=== PATIENT | male | born 1985 | race Hispanic/Latino ===

== ENCOUNTER 2017-09-29 17:43 | Emergency (ER) | payer SELFPAY ==
--- NOTE | 2017-09-29 18:28 | EKG12_ITS ---
Test Reason : CP Blood Pressure : / mmHG Vent. Rate : 065 BPM Atrial Rate : 065 BPM P-R Int : 150 ms QRS Dur : 084 ms QT Int : 390 ms P-R-T Axes : 034 053 037 degrees QTc Int : 405 ms Normal sinus rhythm Normal ECG Confirmed by JOSEPH WHATLEY, HERMES ([id number]), video news editor DANIS DIAZ ([id number]) on 10/03/2017 2:59:01 PM Referred By: APRIL Confirmed By:HERMES RUIZ MD
--- NOTE | 2017-09-29 19:15 | RAD_ITS ---
STUDY: X-RAY CHEST REASON FOR EXAM: Male, 32 years old. Right chest pain TECHNIQUE: PA and lateral COMPARISON: None. FINDINGS: Right perihilar interstitial infiltrate slightly more pronounced in the lower and middle lobes. There is no demonstrated pleural abnormality. Normal size heart. Normal mediastinum and stefano. Normal visualized pulmonary arteries. Normal visualized aortic arch and descending thoracic aorta. Normal visualized thoracic spine. Normal visualized ribs, clavicles, and shoulders. There is no demonstrated abnormality of the visualized soft tissue structures of the upper abdomen. RAD/Chest PA and Lateral IMPRESSION: Right-sided interstitial infiltrate which may be consistent with viral pneumonia. Clinical correlation recommended Electronically Signed: Jens Bledsoe MD at 20:10 EDT , Service support ,
--- NOTE | 2017-09-30 01:09 | ED.DCSUM_ITS ---
- ER Visit Summary Date of Service: 09/30/17 Chief Complaint: Chest pain History of Present Illness: The patient is a 32 M who states for the past several days he has had a runny nose and a cough. 2 days ago he began to have pain on the right anterior chest wall. He states whenever he coughs it is extremely painful. Whenever he touches this area or twist or moves it hurts. Denies any fevers. He denies any sputum production. No dyspnea on exertion. He is a smoker. He denies any trauma. No reported rashes. Physical Examination: Afebrile vital signs are stable Gen: Well-nourished well-developed Head: Normocephalic atraumatic Eyes: Perrl EOMI ENT: TMs clear no rhinorrhea moist mucous membranes Neck: Supple no lymphadenopathy no JVD nontender CVS: Regular rate rhythm no murmurs normal S1-S2 Respiratory: No distress clear to auscultation bilaterally right anterior lower chest wall is tender to palpation. This exactly reproduces his pain. When the patient coughs he splints on the side. Abdomen: Soft nontender nondistended normal bowel sounds no masses Back: Nontender Extremity: Nontender no edema Skin: Normal color no rash Neuro: alert orientated ?3 CN II-XII intact normal strength sensation reflexes gait cerebellar Psych: Normal affect normal mood Test Results: Chest x-ray read by radiology shows a right-sided interstitial infiltrate which may be consistent with a viral pneumonia. I believe the patient's symptoms are viral in nature. But I believe his chest pain is related to his chest wall. He will be treated conservatively with ibuprofen. Return if worsening. Impression: 1. Viral respiratory illness 2. Chest wall pain This note was generated with [employer] dictation software. It may contain incorrect words, spelling, and punctuation that were not noted in review of the chart prior to signing ED Disposition - Plan for ED Patient: Referrals: Care Physician,No Primary [Primary Care Provider] -
== END 2017-09-29 20:35 | disposition home or self-care (01) ==
LOC: ED 20:34
PROVIDERS: Emergency Provider Emergency Medicine
DX: J06.9 Acute upper respiratory infection, unspecified (principal); R07.89 Other chest pain; Z72.0 Tobacco use
CPT/HCPCS: 71046; 93005; 96372; 99282

== ENCOUNTER 2017-10-03 09:34 | Emergency (ER) | payer SELFPAY ==
[2017-10-03 09:35] VITALS: BP 145/81; PULSE 74; RESP 16; TEMP 36.4; O2SAT 97; BMI 32.2
--- NOTE | 2017-10-03 10:02 | ED.VISSUMM ---
- ER Visit Summary Date of Service: 10/03/17 Chief Complaint: Right chest wall pain History of Present Illness: The patient is a 32 M presenting with right-sided chest wall pain. Patient was seen in the ED on Monday for similar complaints. He states Motrin is not helping his symptoms. He states before this started he had been coughing frequently. He denies any other injury. He has pain with deep inspiration. Denies other complaints. Physical Examination: Vitals are stable. Patient is afebrile. Alert no acute distress. HEENT exam is unremarkable. Neck is supple. Lungs are clear and equal bilaterally. Right anterior chest wall tenderness with no crepitus Heart is regular rate and rhythm. Abdomen is soft nontender nondistended. No guarding or rebound Extremities are unremarkable. Skin is warm and dry. No rash. No focal neurologic deficit. Remainder of exam is unremarkable. Emergency Department Course and Treatment: Patient is given Toradol. Right rib series shows no acute process. D-dimer is 0.68. CTA chest shows no evidence of PE or dissection. Patient is given an incentive spirometer. He is given a short course of [place]. Advised to continue Motrin. He is given Dr. Torre developmental education instructor for no doc for follow-up. Advised return to ED for worsening complaints. Disposition: Discharge home Impression: Right chest wall pain This note was generated with [employer] dictation software. It may contain incorrect words, spelling, and punctuation that were not noted in review of the chart prior to signing ED Disposition - Plan for ED Patient: Chief Complaint: Chest Other Referrals: Care Physician,No Primary [Primary Care Provider] -
[2017-10-03] MEDS: Ketorolac 30 MG/ML Syringe IV (10:03)
--- NOTE | 2017-10-03 10:20 | RAD_ITS ---
STUDY: X-RAY - UNILATERAL RIBS ( RIGHT ) WITH CHEST REASON FOR EXAM: Male, 32 years old. Right anterior mid-level chest and rib pain. TECHNIQUE - RIBS: 4 view(s) of the ribs. TECHNIQUE - CHEST: Single frontal projection of the chest. COMPARISON: Chest exam September 29, 2017. FINDINGS - RIBS: Normal visualized ribs without a demonstrated fracture. FINDINGS - CHEST: There is chronic atelectasis versus fibrosis within the right medial lung base. There is no pleural effusion. There is no pneumothorax. Normal size heart. Normal mediastinum and stefano. Normal visualized pulmonary arteries. Normal visualized aortic arch and descending thoracic aorta. Normal visualized thoracic spine. Normal visualized ribs, clavicles, and shoulders. There is no demonstrated abnormality of the visualized soft tissue structures of the upper abdomen. RAD/Ribs Uni Min 3V w/PA Chest IMPRESSION: RIBS: No acute osseous abnormality. CHEST: Right medial lung base chronic atelectasis versus fibrosis. Overall, no evident acute cardiopulmonary disease. Electronically Signed: Ronnell Gonzales MD at 10:56 EDT , Service support ,
[2017-10-03 11:29] LABS: D-Dimer Quantitative (DVT/PE) 0.68 FEU/ug/m (0.27-0.49)
--- NOTE | 2017-10-03 11:31 | CT_ITS ---
STUDY: CTA CHEST REASON FOR EXAM: Male, 32 years old. Elevated d-dimer and chest pain. RADIATION DOSAGE (If Supplied By Facility): CTDIvol = ( 17.49 ) mGy, DLP = ( 522.31 ) mGycm TECHNIQUE: The examination was performed with the intravenous administration of 100ML ml of Isovue 370 contrast material. Post-processing of the angiographic images was performed, with multiplanar reformation and 3D reconstruction. Individualized dose optimization techniques were used for this CT. COMPARISON: None. FINDINGS: Normal enhancement of the main pulmonary artery and right and left pulmonary arteries. Normal enhancement of the bilateral peripheral pulmonary arteries. There is no demonstrated pulmonary embolism. Normal thoracic aorta and visualized great vessels. There is no demonstrated aortic dissection. Normal heart and pericardium. Normal mediastinum. Normal hilar regions. Normal visualized trachea and bronchi. There is multifocal subsegmental atelectasis throughout the lungs, predominantly involving bilateral lower lobes. There is no pleural effusion. There is no pneumothorax. Normal chest wall structures. Normal osseous structures. Normal visualized upper abdomen. CT/CTA Chest W/WO Contrast IMPRESSION: No demonstrated pulmonary embolism or arterial dissection. Multifocal subsegmental atelectasis bilaterally, predominantly involving lower lobes. Electronically Signed: Ronnell Gonzales MD at 12:40 EDT , Service support ,
[2017-10-03 12:05] LABS: Anion Gap 7 (5-15); BUN 10 mg/dL (7-18); BUN/Creat Ratio 10.6 RATIO (10-20); Chloride 104 mmol/L (98-107); Creatinine, Serum 0.94 mg/dL (0.70-1.30); EST Glomerular Filtration Rate 99 mL/min (>60); Est Glom Filt Rate - Afr Amer 120 mL/min (>60); Estimated Creatinine Clearance 99.05 ml/min; Glucose 118 mg/dL (74-106); Potassium 3.7 mmol/L (3.5-5.1); Sodium Level 136 mmol/L (136-145)
--- NOTE | 2017-10-03 13:02 | ED.DEP ---
ED Disposition - Plan for ED Patient: Chief Complaint: Chest Other Instructions: ED Strain Chest Wall Prescriptions: Hydrocodone Bitart/Apap 5-325 [[place] 5/325] 1 - 2 tablet PO Q6H PRN PRN 2 Days #8 tablet PRN Reason: Pain Referrals: Care Physician,No Primary [Primary Care Provider] - Marcus Torre MD [STAFF PHYSICIAN] -
--- NOTE | 2017-10-03 13:03 | EKG12_ITS ---
Test Reason : CHEST/OTHER Blood Pressure : / mmHG Vent. Rate : 065 BPM Atrial Rate : 065 BPM P-R Int : 158 ms QRS Dur : 088 ms QT Int : 404 ms P-R-T Axes : 021 040 025 degrees QTc Int : 420 ms Normal sinus rhythm Normal ECG Confirmed by TREVOR WHATLEY, TAMMI ([id number]), video editor DANIS DIAZ ([id number]) on 10/06/2017 12:55:06 PM Referred By: LINWOOD Confirmed By:TAMMI MURRAY MD
--- NOTE | 2017-10-03 13:03 | DCINST.ED_ITS ---
ED Disposition - Plan for ED Patient: Chief Complaint: Chest Other Instructions: ED Strain Chest Wall Prescriptions: Hydrocodone Bitart/Apap 5-325 [[place] 5/325] 1 - 2 tablet PO Q6H PRN PRN 2 Days # 8 tablet PRN Reason: Pain Referrals: Care Physician,No Primary [Primary Care Provider] - Marcus Torre MD [STAFF PHYSICIAN] -
[2017-10-03 13:46] VITALS: BP 120/73; PULSE 61; RESP 14; O2SAT 97
== END 2017-10-03 13:46 | disposition home or self-care (01) ==
LOC: ED 09:59
PROVIDERS: Emergency Provider Emergency Medicine
DX: R07.89 Other chest pain (principal); R05 Cough; R06.00 Dyspnea, unspecified; Z72.0 Tobacco use
CPT/HCPCS: 36415; 71101; 71275; 80048; 85379; 93005; 96374; 99285; Q9967

== ENCOUNTER 2017-10-16 16:41 | Emergency (ER) | payer SELFPAY ==
[2017-10-16 16:42] VITALS: BP 114/70; PULSE 89; RESP 17; TEMP 36.7; O2SAT 96; BMI 30.9
--- NOTE | 2017-10-16 16:53 | ED.RN ---
PT WAS EATING SNACKS IN TRIAGE, WHEN THIS RN WAS TRYING TO CHECK IN PT. PT EDUCATED NOT TO EAT UNTIL AFTER HE IS EVALUATED BY AND IS CLEARED TO EAT.
--- NOTE | 2017-10-16 16:56 | RAD_ITS ---
STUDY: X-RAY - LUMBAR SPINE REASON FOR EXAM: Male, 32 years old. Low back pain. TECHNIQUE: 3 view(s) of the lumbar spine were obtained. COMPARISON: None FINDINGS: Normal lumbar lordosis. There is no substantial scoliosis. There is a normal alignment of the vertebrae. Normal vertebral bodies and endplates. Normal disc space heights. There is no demonstrated fracture. The soft tissue structures are unremarkable. RAD/Lumbar Spine 2 or 3 Views IMPRESSION: Normal x-ray examination of the lumbar spine. Electronically Signed: Tyrese Aldridge MD at 19:56 EDT , Service support ,
--- NOTE | 2017-10-16 17:05 | RAD_ITS ---
STUDY: X-RAY CHEST REASON FOR EXAM: Male, 32 years old. Rib pain. TECHNIQUE: Frontal and lateral views of the chest. COMPARISON: 10/03/2017. FINDINGS: The lungs are clear and expanded. There is no demonstrated pleural abnormality. Normal size heart. Normal mediastinum and stefano. Normal visualized pulmonary arteries. Normal visualized aortic arch and descending thoracic aorta. Normal visualized thoracic spine. Normal visualized ribs, clavicles, and shoulders. There is no demonstrated abnormality of the visualized soft tissue structures of the upper abdomen. RAD/Chest PA and Lateral IMPRESSION: Normal x-ray examination of the chest. Electronically Signed: Tyrese Aldridge MD at 20:09 EDT , Service support ,
--- NOTE | 2017-10-16 17:56 | ED.DCSUM_ITS ---
- ER Visit Summary Date of Service: 10/16/17 Chief Complaint: Back and right rib pain History of Present Illness: The patient is a 32 M who was seen here at the end of September ?2. He had rib pain on the right believe secondary to coughing. His second visit his CT angios that was negative. Patient states symptoms resolved. 2 days ago his symptoms returned. He also now notes pain in the low back. States cough is significantly better now he usually only coughs when he is at work. The low back pain is nonradiating. He has tenderness in his muscles on the left. He denies any bowel or bladder dysfunction. No paresthesias or muscle strength loss. No hemoptysis or rashes. Physical Examination: Afebrile vital signs are stable Gen: Well-nourished well-developed Head: Normocephalic atraumatic Eyes: Perrl EOMI ENT: TMs clear no rhinorrhea moist mucous membranes Neck: Supple no lymphadenopathy no JVD nontender CVS: Regular rate rhythm no murmurs normal S1-S2 Respiratory: No distress clear to auscultation bilaterally right tenderness over the right mid axillary rib 8 distribution. Worse with movement. Abdomen: Soft nontender nondistended normal bowel sounds no masses Back: Tender palpation of the left lumbar paraspinal musculature. Extremity: Nontender no edema Skin: Normal color no rash Neuro: alert orientated ?3 CN II-XII intact normal strength sensation reflexes gait cerebellar Psych: Normal affect normal mood Test Results: Chest x-ray lumbar spine films read by this physician is negative for acute findings. Emergency Department Course and Treatment: Leave this to be somatic dysfunction. Will use some Flexeril and ibuprofen. He will once again be asked to follow-up. He did not do so the first 2 times in the emergency department and I encouraged him to do so this time. Impression: 1. Musculoskeletal right chest wall pain 2. Lumbar muscle strain This note was generated with [employer] dictation software. It may contain incorrect words, spelling, and punctuation that were not noted in review of the chart prior to signing ED Disposition - Plan for ED Patient: Disposition: Home or Assisted Living Chief Complaint: Chest Other Instructions: ED Strain Chest Wall, ED Sprain Strain Lumbar Prescriptions: Ibuprofen [Motrin] 800 mg PO TID PRN PRN #20 tab PRN Reason: Pain Cyclobenzaprine [Flexeril] 10 mg PO TID PRN #20 tab PRN Reason: Muscle Spasm Referrals: Marcus Torre MD [STAFF PHYSICIAN] - (Please call to arrange follow up)
[2017-10-16 18:33] VITALS: PULSE 82; RESP 16; O2SAT 99
== END 2017-10-16 18:34 | disposition home or self-care (01) ==
PROVIDERS: Emergency Provider Emergency Medicine
DX: R07.89 Other chest pain (principal); S39.012A Strain of muscle, fascia and tendon of lower back, initial encounter; X50.9XXA Other and unspecified overexertion or strenuous movements or postures, initial encounter; Y93.9 Activity, unspecified; Y92.89 Other specified places as the place of occurrence of the external cause; Y99.9 Unspecified external cause status; Z72.0 Tobacco use; R05 Cough
CPT/HCPCS: 71046; 72100; 99282

== ENCOUNTER 2018-10-30 09:26 | Emergency (ER) | payer SELFPAY ==
[2018-10-30 09:27] VITALS: BP 155/84; PULSE 94; RESP 18; TEMP 36.4; O2SAT 99; BMI 37.1
--- NOTE | 2018-10-30 09:32 | ED.RN ---
PT TO REPORT TO [facility] PER D[facility]A FROM [facility] FOR DRUG TESTING
--- NOTE | 2018-10-30 09:54 | ED.VISSUMM ---
- ER Visit Summary Date of Service: 10/30/18 Chief Complaint: Laceration History of Present Illness: The patient is a 33 M who cut his left index finger with a knife at work yesterday. He is right-hand dominant. He is unsure of his last tetanus update. He denies paresthesias or weakness. Physical Examination: Vital signs significant for blood pressure of 155/84, otherwise unremarkable. Patient sitting upright in bed no acute distress. Left upper extremity examination with a 2 cm superficial flap laceration on the left index finger. He has full range of motion. Normal sensation. Normal cap refill. Test Results: [] Emergency Department Course and Treatment: I discussed with the patient that the wound is now almost 20 hours old I do not think suturing is appropriate. Will be cleansed and a few Steri-Strips placed. Will be splinted in extension to hold the laceration for the next couple days. Treatment Plan: [] Disposition: Discharge Impression: Left index finger laceration, old-not sutured This note was generated with [employer] dictation software. It may contain incorrect words, spelling, and punctuation that were not noted in review of the chart prior to signing ED Disposition - Plan for ED Patient: Disposition: Home or Assisted Living Instructions: ED Laceration Old Not Sutr Referrals: Corporate,Care [GROUP OF PHYSICIANS] - 2 Days
[2018-10-30] MEDS: Diphth,Pertuss(Acell),Tet Vac 0.5 ML Vial IM (10:10)
--- NOTE | 2018-10-30 10:40 | NURSING ---
Patient refusing to fill out workman's comp paperwork. States he is not going to file for workman's compensation. Instructed to call his employer to verify if they still want to the drug test completed at the [facility].
== END 2018-10-30 10:41 | disposition home or self-care (01) ==
PROVIDERS: Emergency Provider Emergency Medicine
DX: S61.211A Laceration without foreign body of left index finger without damage to nail, initial encounter (principal); W26.0XXA Contact with knife, initial encounter; Z72.0 Tobacco use
CPT/HCPCS: 90471; 90715; 99283

== ENCOUNTER 2019-04-15 19:54 | Emergency (ER) | payer SELFPAY ==
[2019-04-15 19:54] VITALS: BP 147/87; RESP 17; TEMP 37.4; O2SAT 99
[2019-04-15 19:55] VITALS: BP 147/87; PULSE 94; RESP 17; TEMP 37.4; O2SAT 99; BMI 35.6
--- NOTE | 2019-04-15 20:56 | ED.DCSUM_ITS ---
History of Present Illness Chief Complaint: Dental Detail of Chief Complaint: Dental pain and facial swelling Informant: Patient Onset: Yesterday Current Severity: Severe Maximum Severity: Severe Narrative: Patient presents with dental pain and facial swelling that started yesterday. He states he had a tooth on the right lower surface has been broken for some time. Yesterday the area became painful and has had progressive swelling since that time. He denies fever. He had no difficulty with breathing or swallowing. Past Medical History - Allergies and Home Meds Allergies/Adverse Reactions: Allergies No Known Allergies Allergy (Verified 04/15/19 19:54) Prior records reviewed: Yes Past Medical History: - - Reviewed Lives: With Family Smoking Status: Current every day smoker Review of Systems General: Denies: Chills, Fever Eyes: Denies: Visual changes - bilaterally ENT: Reports: Right ear pain, - - Dental pain and facial swelling Cardiovascular: Denies: Chest pain Respiratory: Denies: Dyspnea, Cough Gastrointestinal: Denies: Abdominal pain, Nausea, Vomiting, Diarrhea Genitourinary: Denies: Dysuria Skin: Denies: Rash Allergy: Denies: Uticaria Physical Exam Vital Signs/Narrative: Vital Signs Temp Pulse Resp BP Pulse Ox 04/15/19 19:55 99.4 F H 94 17 147/87 H 99 04/15/19 19:54 99.4 F H 17 147/87 H 99 Inital Vital Signs reviewed: Yes General: Well nourished, Well developed Head: Normocephalic Eyes: Perrl, EOMI ENT: Moist mucous membranes, - - Patient has facial swelling with obvious abscess along the right mandible. Intraoral examination reveals right kylah ibular first molar to be broken with surrounding gum edema. Posterior pharynx examination is unremarkable. Submandibular space is soft with no sign of Jose's angina. He is tolerating secretions well and has a strong voice. Cardiovascular: Regular rate, Regular rhythm Respiratory: No distress, CTA bilaterally Abdomen: Soft, Nontender Extremities: Nontender, No edema Skin: Normal color, No rash Neurological: Alert, Oriented x3 Psychological: Normal affect Diagnostic/Tx/Re-eval - Medical Decision Making Patient is treated here with [place] and Pen-Vee K. He is given prescriptions for the same along with naproxen. He is given a dental referral list. ED Disposition - Plan for ED Patient: Disposition: Home or Assisted Living Diagnosis: Dental abscess Instructions: Dental Abscess Prescriptions: Naproxen [Naprosyn] 500 mg PO BID PRN PRN #20 tab PRN Reason: Pain Score -03/21 Prescription Printed Hydrocodone Bitart/Apap 5-325 [[place] 5MG-325MG] 1 tab PO Q6H PRN PRN 3 Days #10 tab PRN Reason: Pain Prescription Printed Penicillin V Potassium 500 mg PO 4X/DAY #40 tab Prescription Printed Additional Instructions: Dental list provided.
[2019-04-15] MEDS: HYDROcodone Bitartrate/Apap 5/325 Tablet PO (21:17)
[2019-04-15] MEDS: Penicillin Vk 250 MG Tablet 500 MG PO (21:17)
[2019-04-15 21:18] VITALS: RESP 16
== END 2019-04-15 21:20 | disposition home or self-care (01) ==
PROVIDERS: Emergency Provider Emergency Medicine
DX: K04.7 Periapical abscess without sinus (principal); F17.200 Nicotine dependence, unspecified, uncomplicated
CPT/HCPCS: 99283

== ENCOUNTER 2019-12-05 13:56 | Emergency (ER) | payer SELFPAY ==
[2019-12-05 13:57] VITALS: BP 156/67; PULSE 77; RESP 16; TEMP 36.6; O2SAT 98; BMI 37.5
--- NOTE | 2019-12-05 15:41 | ED.DCSUM_ITS ---
History of Present Illness Chief Complaint: Dental Informant: Patient Onset: Weeks Current Severity: Mild Maximum Severity: Mild Narrative: The patient presents with swelling to the right mid jawline for about 10 to 14 d ays, he has a carious right lower second molar he expresses concern that this may be related to the tooth. He has not been able to see a dentist. He has no history of MRSA facial infections or facial abscesses diabetes he has no past history no meds no allergies He is able to eat and drink without difficulty Girlfriend with him expresses concern this is a facial skin infection related to the tooth and is asking that it be drained Past Medical History - Allergies and Home Meds Allergies/Adverse Reactions: Allergies No Known Allergies Allergy (Verified 12/05/19 13:57) Primary Care Physician: Care Physician,No Primary [Primary Care Provider] - Past Medical History: None Smoking Status: Current every day smoker Review of Systems General: Denies: Chills, Fever, Sweats Eyes: Denies: Visual changes - bilaterally, Diplopia ENT: Reports: - - Area of swelling involving the right mid mandibular area dental cavity second right lower molar. Denies: Rhinorrhea, Sore throat Cardiovascular: Denies: Chest pain, Palpitations Respiratory: Denies: Dyspnea, Cough, Dyspnea on exertion Gastrointestinal: Denies: Abdominal pain, Nausea, Vomiting, Diarrhea, Melena, Hematochezia Genitourinary: Denies: Dysuria, Hematuria, Frequency Musculoskeletal: Denies: Back pain, Extremity Pain Skin: Denies: Rash, Wounds Neurological: Denies: Headache, Weakness, Numbness Physical Exam Vital Signs/Narrative: Vital Signs Temp Pulse Resp BP Pulse Ox 12/05/19 13:57 97.9 F 77 16 156/67 H 98 General: Well nourished, Well developed, No Acute Distress Head: Normocephalic, Atraumatic Eyes: Perrl, EOMI ENT: Moist mucous membranes, No rhinorrhea, - - Patient has swelling over the right mid mandibular area he has about a 2 cm area of induration, directly adjacent to this area in his mouth the right second lower molar is completely carious mild tenderness the floor of the mouth and tongue are soft there is no obvious signs of intraoral involvement, he is able to fully open and close his mouth the rest of the HEENT exam is unremarkable, his neck is supple with no adenopathy the skin overlying the mandible shows no obvious signs to suggest local skin defect Neck: Supple, Nontender Cardiovascular: Regular rate, Regular rhythm, No murmurs Respiratory: No distress, CTA bilaterally, Chest nontender Abdomen: Soft, Nontender, Nondistended, Normal bowel sounds Back: Nontender, Normal Inspection Extremities: Nontender, No edema Skin: Normal color, No rash Neurological: Alert, Oriented x3, Cranial nerves II-XII grossly intact, Normal Strength, Normal Sensation Psychological: Normal affect, Normal Mood Diagnostic/Tx/Re-eval - Medical Decision Making I had a long conversation with the patient his girlfriend I explained that exact etiology because whether it was a local skin process or related to the directly adjacent carious tooth requires a different approach, and if it is related to a dental infection to proceed with I&D could result in complications such as fistula and the best approach was to start him on antibiotics warm compresses have him follow-up with dental services and outpatient providers for further management So he was given 1 g of Rocephin IM, Keflex Bactrim Naprosyn for home use he will be referred to local primary care and dental clinic plastic surgery and he will return for change in symptoms Stable home Final impression right mandibular swelling infection, dental caries ED Disposition - Plan for ED Patient: Diagnosis: Dental abscess facial cellulitis Instructions: Dental Abscess, ED Dental Abscess with Facial Cellulitis Prescriptions: Smz/Tmp Ds [Bactrim Ds] 1 tab PO BID #14 tab Prescription Printed Cephalexin [Keflex] 500 mg PO Q6 #40 cap Prescription Printed Naproxen [Naprosyn] 500 mg PO BID PRN #20 tab Prescription Printed Referrals: Care Physician,No Primary [Primary Care Provider] - Jessica Moore [NON-STAFF] - Bebeto Manzano MD [STAFF PHYSICIAN] -
[2019-12-05] MEDS: Naproxen 500 MG Tablet PO (15:54)
[2019-12-05] MEDS: Smz/Tmp Ds Tablet 1 TABLET PO (15:55)
[2019-12-05] MEDS: Cephalexin 250 MG Capsule 500 MG PO (15:55)
--- NOTE | 2019-12-05 16:37 | ED.RN ---
pt left without rx or dc instuctions. phone number for pt was a nonworking number. called next of kin to attempt to contact pt regarding ordered rx and need for them. spoke with brother yane.
== END 2019-12-05 16:38 | disposition home or self-care (01) ==
LOC: ED 15:41
PROVIDERS: Emergency Provider Emergency Medicine
DX: K04.7 Periapical abscess without sinus (principal); L03.211 Cellulitis of face; F17.200 Nicotine dependence, unspecified, uncomplicated
CPT/HCPCS: 96372; 99283

== ENCOUNTER 2019-12-06 15:59 | Emergency (ER) | payer SELFPAY ==
[2019-12-05 13:57] VITALS: BMI 37.5
[2019-12-06 15:59] VITALS: BP 148/83; PULSE 85; RESP 16; TEMP 36.1; O2SAT 97; BMI 37.5
[2019-12-06 16:01] VITALS: BP 148/83; PULSE 85; RESP 16; TEMP 36.1; O2SAT 97
--- NOTE | 2019-12-06 17:37 | ED.VISSUMM ---
- ER Visit Summary Date of Service: 12/06/19 Chief Complaint: Facial abscess History of Present Illness: The patient is a 34 M who presents with a facial abscess that has been getting worse over the past several days. Patient was seen here yesterday. Patient was given a dose of Bactrim and Keflex here yesterday and was written prescriptions for those. Patient did not get the prescriptions filled and left prior to receiving the prescriptions yesterday. Patient returned today because his pain is worse. Patient denies any discharge or drainage. Patient denies any fevers or chills. Patient describes his pain as throbbing and pressure. Patient states the pain is over the right mandibular area. Physical Examination: Vital signs are stable. Patient is afebrile. Patient is in no acute distress. Skin is warm and dry. There is a abscess over the right mandibular area. There is some fluctuance and induration. This appears to be contiguous with the skin and not the buccal mucosa. There is no active discharge or drainage. Oral mucosa is pink and moist. Oropharynx is clear. Airway is patent. There is no peritonsillar abscess or swelling. Neck is supple. Trachea is midline. There is no JVD or lymphadenopathy. There is no sublingual edema or erythema. Heart was regular rate and rhythm. Lungs are clear and equal bilaterally. Cranial nerves II through XII are intact. There are no focal motor or sensory deficits noted. Emergency Department Course and Treatment: Patient was given a dose of Bactrim and Keflex here. The skin was cleaned and anesthetized with 1% plain lidocaine locally. A #11 blade scalpel was used to make a small linear incision. Large amount of purulent drainage was expressed. Loculations were broken up. Patient tolerated the procedure well. The wound was left open. Patient was given his prescriptions from yesterday that were printed out. Patient was instructed to fill these and take these until they are gone. Patient was instructed to follow-up with his primary care physician in 5 to 7 days. Patient was instructed return if worse in any way. Patient understood and was agreeable with the plan. All questions were answered. Disposition: Discharge home Impression: Facial abscess This note was generated with [employer] software. It may contain incorrect words, spelling, and punctuation that were not noted in review of the chart prior to signing ED Disposition - Plan for ED Patient: Disposition: Home or Assisted Living Diagnosis: Facial abscess Instructions: ED Abscess Incision And Drainage Referrals: Jessica Moore [NON-STAFF] - 5-7 Days
[2019-12-06 17:58] VITALS: BP 129/78; PULSE 84; RESP 18; O2SAT 99
[2019-12-06] MEDS: Cephalexin 250 MG Capsule 500 MG PO (18:03)
[2019-12-06] MEDS: Smz/Tmp Ds Tablet 1 TABLET PO (18:03)
== END 2019-12-06 18:04 | disposition home or self-care (01) ==
PROVIDERS: Emergency Provider Emergency Medicine
DX: L02.01 Cutaneous abscess of face (principal); F17.210 Nicotine dependence, cigarettes, uncomplicated
CPT/HCPCS: 10060; 99284

== ENCOUNTER 2021-04-23 15:29 | Emergency (ER) | payer SELFPAY ==
[2021-04-23 15:30] VITALS: BP 138/97; PULSE 81; RESP 16; TEMP 36; O2SAT 97; BMI 39.1
[2021-04-23 15:31] VITALS: BP 138/97; PULSE 81; RESP 16; TEMP 36; O2SAT 97
--- NOTE | 2021-04-23 15:49 | ED.VIS.DYS ---
HPI History of Present Illness Chief Complaint: Cold Sx Informant: patient Narrative Narrative: 36-year-old male states that yesterday he began to have sneezing mild rhinorrhea scratchy throat and a nonproductive cough. He states that when he coughs he tends to have a some discomfort in the mid portion of his chest. It is sore to touch. No fevers. No body aches. No vomiting or diarrhea. PFSH PFS Medical History Acute lumbar myofascial strain Thoracic myofascial strain Home Medications NK 04/23/21 [History Last Taken Unknown] Allergy/AdvReac Type Severity Reaction Status Date / Time No Known Allergies Allergy Verified 04/23/21 15:52 Social History (Updated 04/23/21 @ 15:[address] Be Esquivel DO) Smoking Status: Current every day smoker tobacco type: cigarettes substance use type: does not use ROS ROS ED Constitutional Constitutional ED: Denies chills, fever(s) or weight loss Eyes Eyes: Denies change in vision or diplopia ENT ENT ED: Reports rhinorrhea, sore throat and other Details: Sneezing ; Denies ear pain Cardiovascular Cardiovascular: Reports chest pain; Denies orthopnea, palpitations or racing heartbeat Respiratory/Chest Respiratory/Chest: Reports cough; Denies dyspnea or orthopnea Gastrointestinal Gastrointestinal: Denies abdominal pain, diarrhea, nausea or vomiting Genitourinary Genitourinary ED: Denies dysuria, hematuria or urinary frequency Musculoskeletal Musculoskeletal: Denies arthralgias or myalgias Integumentary Denies abscess or rash Neurologic Neurologic: Denies headache(s) or weakness Psychiatric Psychiatric: Denies anxiety, depression, suicidal ideation or suicidal thoughts Endocrine Endocrinology: Denies polydipsia, polyphagia or polyuria Allergic/Immunologic Allergic/Immunologic ED: Denies mouth swelling, tongue swelling or urticaria EXAM Physical Exam Const Vital Signs: 04/23/21 15:30 04/23/21 15:31 04/23/21 15:53 Temperature 96.8 F L 96.8 F L Temperature Source Temporal Temporal Pulse Rate 81 81 Respiratory Rate 16 16 Respiratory Effort Normal Respiratory Depth Normal Respiratory Pattern Normal Blood Pressure 138/97 H 138/97 H Blood Pressure Mean 110 110 Pulse Ox 97 97 Oxygen Delivery Method Room Air Positive well nourished and well developed General Appearance ED: well developed HEENT Reports normocephalic, head/scalp atraumatic, TM's clear and moist mucous membranes HEENT Narrative: Clear rhinorrhea mild turbinate edema atraumatic Tympanic Membrane ED: Yes TM's clear Eyes PERRL and EOMs intact bilaterally Neck no lymphadenopathy, supple and no JVD Chest Wall Chest Narrative: Chest tender to palpation along the costochondral borders Resp normal respiratory effort and clear to auscultation bilaterally Cardio regular rate, regular rhythm and no murmurs GI normal to inspection, nondistended, normoactive bowel sounds and non-tender Palpation: soft Back/Spine no CVA tenderness and normal ROM Extremity normal to inspection General Extremety ED: Negative for edema General Extremity: Negative for edema Neuro oriented x3 and CN's II-XII intact bilaterally Sensorium / Orientation: alert Motor Exam: strength 5/5 throughout Psych mental status grossly normal Mood & Affect: Negative for depressed or tearful Skin no rashes or lesions noted and no wounds MDM MDM MDM Narrative Medical decision making narrative: Interpretation of the chest x-ray is no acute process. Covid swab is negative. Patient will be treated supportively at home return if worsening or concerns Radiography Diagnostic Testing: Clinical Impression(s) from Imaging Studies Chest X-Ray 04/23/21 16:20 IMPRESSION: No radiographic evidence of acute cardiopulmonary disease. Electronically Signed: Bib Ba MD at 16:34 EST , Service support , Discharge Plan Triage Chief Complaint: Cold Sx ED Provider: Be Esquivel Dx/Rx/DC Orders Clinical Impression: Viral URI with cough Instructions: ED URI, Viral, No Abx (Adult) Prescriptions: No Action NK RF: 0 Primary Care Provider: Care Physician,No Primary Referrals: Steph Parnell MD [STAFF PHYSICIAN] - As Needed Care Physician,No Primary [Primary Care Provider] - Disposition Disposition: Home, Self Care
[2021-04-23 15:53] VITALS: O2SAT 98
--- NOTE | 2021-04-23 15:58 | CM.ED ---
SW Note Referral Source: Case Find Referral Reason: No Primary Care Physician (PCP) SW reviewed chart and noted that patient has no PCP. SW provided patient with list of [facility] and [facility] Physician List for reference. SW also provided patient with self pay packet. No other issues or concerns voiced at this time. SW remains available for any additional needs. Plan: Provided patient with PCP information Briana HOWARD
--- NOTE | 2021-04-23 16:20 | RAD_ITS ---
EXAM: XR CHEST, 1 VIEW CLINICAL INDICATION: cough TECHNIQUE: Frontal view of the chest. This report was created using [employer] report generation technology. COMPARISON: 10.16.17 FINDINGS: LUNGS AND PLEURAL SPACES: Unremarkable. No consolidation or edema. No pneumothorax. No effusion. HEART: Unremarkable. Cardiac silhouette not enlarged. MEDIASTINUM: Central airways and mediastinal contour are unremarkable. BONES/JOINTS: Unremarkable. SOFT TISSUES: Unremarkable. RAD/Chest 1 View (Portable) IMPRESSION: No radiographic evidence of acute cardiopulmonary disease. Electronically Signed: Bib Ba MD at 16:34 EST , Service support ,
== END 2021-04-23 16:45 | disposition home or self-care (01) ==
PROVIDERS: Emergency Provider Emergency Medicine
DX: J06.9 Acute upper respiratory infection, unspecified (principal); R05.9 Cough, unspecified; F17.210 Nicotine dependence, cigarettes, uncomplicated
CPT/HCPCS: 71045; 87426; 99282

== ENCOUNTER 2021-12-27 14:05 | Emergency (ER) | payer OTHER, SELFPAY ==
[2021-12-27 14:06] VITALS: BP 139/86; PULSE 95; RESP 16; TEMP 36.6; O2SAT 97; BMI 41.5
--- NOTE | 2021-12-27 15:33 | EX.ED.DYSGE1 ---
HPI History of Present Illness Chief Complaint: Numb/Ting Informant: patient and spouse/S.O. Narrative Narrative: Right hand male presents with tingling intermittent to right upper extremity for the past 2 to 3 months. He works at a [employer]. States does worsen when he wakes up. No weakness. No neck pain or injuries in the past. Also reports unable to flex his right pinky finger since a laceration over a year ago. Was unable to see a specialist at that time due to insurance issues. No past medical history. Prior similar symptoms: No PFSH PFSH Medical History Acute lumbar myofascial strain COVID-19 Laceration of right little finger with tendon involvement Thoracic myofascial strain Home Medications NK 12/27/21 [History Last Taken Unknown] Allergy/AdvReac Type Severity Reaction Status Date / Time No Known Allergies Allergy Verified 12/27/21 14:06 Social History Smoking Status: Current every day smoker tobacco type: cigarettes substance use type: does not use ROS ROS ED Constitutional Constitutional ED: Denies chills, fever(s) or sweats Eyes Eyes: Denies change in vision ENT ENT ED: Denies dysphagia or sore throat Cardiovascular Cardiovascular: Denies chest pain, leg edema, palpitations or racing heartbeat Respiratory/Chest Respiratory/Chest: Denies cough, dyspnea or dyspnea on exertion Gastrointestinal Gastrointestinal: Denies abdominal pain, diarrhea, nausea or vomiting Genitourinary Genitourinary ED: Denies dysuria, hematuria or urinary frequency Musculoskeletal Musculoskeletal: Denies back pain, extremity pain or neck pain Integumentary Denies rash or wounds Neurologic Neurologic: Reports paresthesias EXAM Physical Exam Const Vital Signs: 12/27/21 14:06 Temperature 97.8 F Temperature Source Temporal Pulse Rate 95 Respiratory Rate 16 Blood Pressure 139/86 H Blood Pressure Mean 103 Pulse Ox 97 Oxygen Delivery Method Room Air Positive well nourished and well developed General Appearance ED: well developed and NAD HEENT Reports moist mucous membranes normocephalic and atraumatic Eyes PERRL, EOMs intact bilaterally and conjunctivae normal General Eye ED: Yes normal appearance of both eyes Neck no lymphadenopathy and supple Neck Narrative: Spurling's test negative bilaterally. General: Negative for tenderness Chest Wall Chest: Negative for tenderness Resp normal respiratory effort and normal air movement Effort and Inspection: symmetric chest movement; Negative for respiratory distress Cardio regular rate, regular rhythm and no murmurs Peripheral Pulses: pulses 2+ throughout GI normal to inspection, nondistended, normoactive bowel sounds and non-tender Palpation: Negative for guarding or rebound tenderness present Back/Spine no CVA tenderness and no thoracic nor lumbar tenderness Extremity normal to inspection General Extremety ED: Negative for edema or tenderness General Extremity: Negative for edema Neuro oriented x3 Neuro Narrative: Positive Phalen's and Tinel's to the right wrist. There was no engineer of system development strength weakness. Right hand pinky full extension unable to flex at the DIP or PIP joint. There is a healed wound on the ulnar aspect proximal phalanx. Sensorium / Orientation: awake and alert Skin no rashes or lesions noted and no wounds MDM MDM MDM Narrative Medical decision making narrative: Patient exam consistent with carpal tunnel syndrome on the right there is no weakness. Cock-up splint provided. 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 He is given follow-up with orthopedics as an outpatient for evaluation. Work note provided. Discharge Plan Triage Chief Complaint: Numb/Ting ED Provider: Nino Gutierrez Dx/Rx/DC Orders Clinical Impression: Acute carpal tunnel syndrome of right wrist Instructions: Carpal Tunnel Syndrome Prescriptions: No Action NK Primary Care Provider: Care Physician,No Primary Referrals: Hector Mars MD [STAFF PHYSICIAN] - 5-7 Days Care Physician,No Primary [Primary Care Provider] - Activity Restrictions/Additional Instructions: Maintain splint for comfort. You have a chronic flexor tendon injury of your pinky over a year ago. Follow-up with orthopedics. Disposition Disposition: Home, Self Care
== END 2021-12-27 15:45 | disposition home or self-care (01) ==
PROVIDERS: Emergency Provider Emergency Medicine; Visit Provider Emergency Medicine
DX: G56.01 Carpal tunnel syndrome, right upper limb (principal); M66.3 Spontaneous rupture of flexor tendons; F17.210 Nicotine dependence, cigarettes, uncomplicated; Z86.16 Personal history of COVID-19
CPT/HCPCS: 99283